=== PATIENT | female | born 1935 | race African-American/Black ===

== ENCOUNTER → 2017-12-22 | Outpatient (CLI) | payer MEDICARE ==
--- NOTE | 2017-12-23 10:50 | ECHOF ---
Referral Reason:R01.1 Cardiac Murmur MEASUREMENTS -------- HEIGHT: 165.1 cm WEIGHT: 59.0 kg BP: RVIDd: 2.5 cm (< 3.3) IVSd: 0.7 cm (0.6 - 1.1) LVIDd: 4.6 cm (3.9 - 5.3) LVPWd: 0.7 cm (0.6 - 1.1) IVSs: 1.3 cm LVIDs: 2.8 cm LVPWs: 1.3 cm LAESV Index (A-L): 36.27 ml/m Ao Diam: 3.1 cm (2.0 - 3.7) AV Cusp: 1.9 cm (1.5 - 2.6) LA Diam: 2.9 cm (2.7 - 3.8) EPSS: 0.2 cm MV E Kirby: 0.59 m/s MV DecT: 292 ms MV A Kirby: 0.93 m/s MV E/A Ratio: 0.63 AR PHT: 544 ms RAP: 5.00 mmHg RVSP: 28.80 mmHg MV EF SLOPE: 111.02 mm/s (70 - 150) MV EXCURSION: 2.11 cm (> 18.000) FINDINGS -------- Sinus rhythm. This was a technically good study. The left ventricular size is normal. Left ventricular wall thickness is normal. Overall left vent ricular systolic function is normal with, an EF between 55 - 60 %. The right ventricle is normal in size and function. LA is moderately dilated 34-39 ml/m2 RA appears enlarged. Aneurysmal inter-atrial septum. Aortic valve is trileaflet and is mildly thickened. There is lnqq-ib-nybpojpi aortic regurgitation. There is no evidence of aortic stenosis. The mitral valve leaflets are mildly thickened. Mild mitral regurgitation is present. Mild tricuspid regurgitation present. Right ventricular systolic pressure is normal at < 35 mmHg. There is no evidence of pulmonary hypertension. Trace/mild (physiologic) pulmonic regurgitation. The aortic root size is normal. Normal inferior vena cava with normal inspiratory collapse consistent with estimated right atrial pre ssure of 5 mmHg. There is no pericardial effusion. CONCLUSIONS -------- 1. Sinus rhythm. 2. This was a technically good study. 3. The left ventricular size is normal. 4. Left ventricular wall thickness is normal. 5. Overall left ventricular systolic function is normal with, an EF between 55 - 60 %. 6. LA is moderately dilated 34-39 ml/m2 7. RA appears enlarged. 8. Aneurysmal inter-atrial septum. 9. Aortic valve is trileaflet and is mildly thickened. 10. There is ogfn-za-uagpeimb aortic regurgitation. 11. The mitral valve leaflets are mildly thickened. 12. Mild mitral regurgitation is present. 13. Mild tricuspid regurgitation present. 14. Right ventricular systolic pressure is normal at < 35 mmHg. 15. There is no evidence of pulmonary hypertension. 16. Trace/mild (physiologic) pulmonic regurgitation. 17. The aortic root size is normal. 18. There is no pericardial effusion. BATCH MIXER OPERATOR: Jg Christensen RDCS
== END | disposition home or self-care (01) ==
LOC: RADECHMAIN 15:02
PROVIDERS: ATTEND Family Medicine
DX: I08.3 Combined rheumatic disorders of mitral, aortic and tricuspid valves (principal); Z88.1 Allergy status to other antibiotic agents
CPT/HCPCS: 93306

== ENCOUNTER → 2019-07-11 | Outpatient (CLI) | payer MEDICARE ==
--- NOTE | 2019-07-12 12:01 | ECHOF ---
Referral Reason:I10 hypertension MEASUREMENTS -------- HEIGHT: 165.1 cm WEIGHT: 53.1 kg BP: 126/74 RVIDd: 2.4 cm (< 3.3) IVSd: 0.9 cm (0.6 - 1.1) LVIDd: 3.5 cm (3.9 - 5.3) LVPWd: 1.1 cm (0.6 - 1.1) IVSs: 1.6 cm LVIDs: 2.3 cm LVPWs: 1.6 cm LAESV Index (A-L): 40.92 ml/m Ao Diam: 3.0 cm (2.0 - 3.7) AV Cusp: 1.6 cm (1.5 - 2.6) LA Diam: 2.9 cm (2.7 - 3.8) MV EXCURSION: 10.933 mm (> 18.000) MV EF SLOPE: 30 mm/s (70 - 150) EPSS: 0.2 cm MV E Kirby: 0.56 m/s MV DecT: 243 ms MV A Kirby: 0.97 m/s MV E/A Ratio: 0.58 AV maxP.76 mmHg AV meanP.07 mmHg AR PHT: 439 ms RAP: 5.00 mmHg RVSP: 31.60 mmHg FINDINGS -------- Sinus rhythm. This was a technically good study. The left ventricular size is normal. Left ventricular wall thickness is normal. Overall left vent ricular systolic function is normal with, an EF between 55 - 60 %. The right ventricle is normal in size. LA is severely dilated >40 ml/m2 The right atrial size is normal. Aneurysmal Interatrial septum. Aortic valve is trileaflet and is mildly thickened. There is mild aortic valve sclerosis. There i s mild aortic regurgitation. The mitral valve is normal. The mitral valve leaflets are mildly thickened. Mild mitral regurgita tion is present. The tricuspid valve appears structurally normal. Mvnt-wx-xzemywns tricuspid regurgitation present. Right ventricular systolic pressure is normal at < 35 mmHg. Trace/mild (physiologic) pulmonic regurgitation. The aortic root size is normal. There is no pericardial effusion. CONCLUSIONS -------- 1. Sinus rhythm. 2. This was a technically good study. 3. The left ventricular size is normal. 4. Left ventricular wall thickness is normal. 5. Overall left ventricular systolic function is normal with, an EF between 55 - 60 %. 6. The right ventricle is normal in size. 7. LA is severely dilated >40 ml/m2 8. The right atrial size is normal. 9. Aneurysmal Interatrial septum. 10. Aortic valve is trileaflet and is mildly thickened. 11. There is mild aortic valve sclerosis. 12. There is mild aortic regurgitation. 13. The mitral valve is normal. 14. The mitral valve leaflets are mildly thickened. 15. Mild mitral regurgitation is present. 16. The tricuspid valve appears structurally normal. 17. Dxqd-ay-hjrhdjdw tricuspid regurgitation present. 18. Right ventricular systolic pressure is normal at < 35 mmHg. 19. Trace/mild (physiologic) pulmonic regurgitation. 20. The aortic root size is normal. 21. There is no pericardial effusion. CO CHAIRMAN: Brenda Cartwright RDCS
== END | disposition home or self-care (01) ==
LOC: RADECHMAIN 15:48
PROVIDERS: ATTEND Internal Medicine
DX: I08.3 Combined rheumatic disorders of mitral, aortic and tricuspid valves (principal); I25.3 Aneurysm of heart; I11.9 Hypertensive heart disease without heart failure
CPT/HCPCS: 93306

== ENCOUNTER → 2021-05-30 | Outpatient (CLI) | payer MEDICARE ==
--- NOTE | 2021-05-30 14:36 | US ---
EXAMINATION TYPE: US abdomen complete DATE OF EXAM: 05/30/2021 COMPARISON: NONE CLINICAL HISTORY: 85-year-old female R74.8 ELEVATED LIVER ENZYMES. TECHNIQUE: Multiple sonographic images of the abdomen are obtained. FINDINGS: EXAM MEASUREMENTS: Liver Length: 15.2 cm Gallbladder Wall: 0.15 cm CBD: 0.28 cm Spleen: 6.3 x 2.3 cm Right Kidney: 10.4 x 3.1 x 5.1 cm Left Kidney: 10.8 x 3.9 x 4.5 cm Pancreas: wnl Liver: Multiple round anechoic areas seen in the right and left lobes of the liver; largest measurin g 2.7 x 2.0 x 2.4 cm in the left lobe and 2.3 x 2.0 x 2.4 cm in the right lobe of the liver. Gallbladder: Nonmobile, echogenic focus along the anterior wall measuring 1.5 mm suggestive of a tin y polyp. No abnormal distention, wall thickening, pericholecystic fluid, or shadowing calculi. Evidence for sonographic Almonte's sign: No CBD: wnl Spleen: wnl Right Kidney: No hydronephrosis. Left Kidney: No hydronephrosis. Lower pole cortical cyst measuring 1.8 x 1.5 x 2.0 cm Upper IVC: wnl Abd Aorta: wnl IMPRESSION: 1. Multiple benign hepatic cysts measuring up to 2.7 cm. A solitary 2.0 cm left lower pole renal brunilda ical cyst. 2. No gallstones or biliary ductal dilatation.
--- NOTE | 2021-05-30 20:22 | BD ---
EXAMINATION TYPE: Axial Bone Density POOR HISTOR [facility] DATE OF EXAM: 05/30/2021 COMPARISON: NONE CLINICAL HISTORY: 85 YR OLD FEMALE......ICD-10 CODE: M89.9 BONE DISORDER Height: 63 Weight: 117 FRAX RISK QUESTIONS: Family History (Parent hip fracture): UNSURE Glucocorticoids (More than 3mos): UNSURE (Ex: prednisone, prednisolone, methylprednisolone, dexamethasone, and hydrocortisone). RISK FACTORS HISTORY OF: Family History of Osteoporosis: UNSURE Diet low in dairy products/other sources of calcium: UNSURE Postmenopausal woman: HYST AT EARLY AGE,.....POOR HISTORIAN Lost more than 2 inches in height since high school: YES Frequent falls: ELDERLY, UNSTEADY Hyperparathyroidism: UNKNOWN Adrenal Insufficiency: UNKNOWN MEDICATIONS: Additional Medications: BP MEDS, POSSIBLE CHOLESTEROL MEDS, ARTHRITIS MEDS Additional History: HYPERTENSION, UNSURE ABOUT ANYTHING ELSE EXAM MEASUREMENTS: Bone mineral densitometry was performed using the [employer] System. Bone mineral density as measured about the Lumbar spine is: ----- L1-L4(G/cm2): 0.909 T Score Values are as follows: ----- L1: -2.4 ----- L2: -2.6 ----- L3: -1.8 ----- L4: -2.4 ----- L1-L4: -2.3 Bone mineral density FIRST BONE DENSITY AT [facility] Bone mineral density about the R hip (g/cm2): 0.757 Bone mineral density about the L hip (g/cm2): 0.784 T Score values are as follows: -----R Neck: -2.0 -----L Neck: -1.6 -----R Total: -2.0 -----L Total: -1.8 Bone mineral density FIRST BONE DENSITY AT [facility] FRAX%s: THERE IS A 6.5% CHANCE FOR A MAJOR OSTEOPOROTIC FX AND A 2.0% FOR HIPS......PROBABILIT Y FOR FX IN 10 YRS TIME IMPRESSION: Osteopenia (T Score between -2.5 and -1). There is slightly increased risk of fracture and the patient may be considered for treatment. Re-Screen 2-5 years. NOTE: T-SCORE=SD OF THE YOUNG ADULT MEAN.
== END | disposition home or self-care (01) ==
LOC: RADUSWWP 09:34
PROVIDERS: ATTEND Internal Medicine
DX: M85.80 Other specified disorders of bone density and structure, unspecified site (principal); R74.8 Abnormal levels of other serum enzymes
CPT/HCPCS: 76700; 77080

== ENCOUNTER → 2021-08-22 | Outpatient (CLI) | payer MEDICARE ==
--- NOTE | 2021-08-23 10:04 | XR ---
Left femur HISTORY: Pain Frontal lateral views of left femur on 4 images There is some arthropathy change in the left hip. Bone mineralization is reduced. Alignment is mainta ined. Joint space loss also present in the knee. No fracture or dislocation. Atherosclerotic vascular calcifications are present. There is an enthesophyte present at the insertion of the quadriceps tend on. IMPRESSION: Possible arthropathy. Low bone mineralization. Additional findings above.
--- NOTE | 2021-08-23 10:06 | XR ---
Lumbar spine HISTORY: Low back pain 3views of the lumbar spine on 4 images Bone mineralization is reduced. There is a levoscoliosis centered at L2 with rotatory component. Lumb ar vertebral bodies show preserved height. There is anterolisthesis grade 1 L4-5. Sclerosis is presen t posterior elements of the lumbar spine. Retrolisthesis grade 1 L2-3. There is multilevel spondylosi s. Loss of disc height present at intervertebral levels L4-5, L3-4 and L2-3. Apical scarring vascular calcifications are noted. IMPRESSION: Osteopenia, degenerative disc disease, facet arthropathy, spinal curvature.
== END | disposition home or self-care (01) ==
LOC: RADXRMAIN 17:11
PROVIDERS: ATTEND Internal Medicine
DX: M51.36 Other intervertebral disc degeneration, lumbar region (principal); M46.96 Unspecified inflammatory spondylopathy, lumbar region; M43.9 Deforming dorsopathy, unspecified; M85.88 Other specified disorders of bone density and structure, other site
CPT/HCPCS: 72100

== ENCOUNTER → 2022-03-19 | Outpatient (CLI) | payer MEDICARE ==
--- NOTE | 2022-03-19 14:36 | XR ---
EXAMINATION TYPE: XR chest 2V DATE OF EXAM: 03/19/2022 COMPARISON: NONE TECHNIQUE: PA and lateral views submitted. HISTORY: Cough FINDINGS: The lungs are clear and there is no pneumothorax, pleural effusion, or focal pneumonia. Heart size normal. Atherosclerotic change aorta. Arthropathy of the shoulders. Density overlying the proximal ri ght humerus may be superficial to bone. No overt failure. IMPRESSION: 1. No acute process.
== END | disposition home or self-care (01) ==
LOC: RADXRMAIN 13:54
PROVIDERS: ATTEND Internal Medicine
DX: R05.9 Cough, unspecified (principal)
CPT/HCPCS: 71046

== ENCOUNTER → 2022-07-16 | Outpatient (CLI) | payer MEDICARE ==
[2022-07-16 18:24] LABS: African American GFR (CKD) 67.1 (60.0-200.0); Albumin 4.4 g/dL (3.8-4.9); Albumin/Globulin Ratio 1.47 (1.60-3.17); Anion Gap 9.2 mmol/L (10.00-18.00); BUN/Creat Ratio 20.33 Ratio (12.00-20.00); Blood Urea Nitrogen 18.3 mg/dL (9.0-27.0); Calcium 10.4 mg/dL (8.7-10.3); Carbon Dioxide 29.8 mmol/L (20.0-27.5); Non-African American GFR(CKD) 57.9 (60.0-200.0); Potassium 4.5 mmol/L (3.5-5.5); Total Bilirubin 0.5 mg/dL (0.30-1.20); Total Protein 7.4 g/dL (6.2-8.2)
[2022-07-16 18:30] LABS: Basophils # (A) 0.04 X 10*3/uL (0.00-0.10); Basophils % (A) 0.7 %; Eosinophils # (A) 0.15 X 10*3/uL (0.04-0.35); Eosinophils % (A) 2.6 %; HCT 40.1 % (37.2-46.3); HGB 12.4 g/dL (12.0-15.0); Immature Grans, Automated 0.3 %; Lymphocytes # (A) 2.62 X 10*3/uL (0.90-5.00); Lymphocytes % (A) 44.9 %; MCH 26.6 pg (27.0-32.0); MCHC 30.9 g/dL (32.0-37.0); MCV 85.9 fL (80.0-97.0); Monocytes # (A) 0.38 X 10*3/uL (0.20-1.00); Monocytes % (A) 6.5 %; NRBC Per 100 WBC 0 /100 WBCS (0.0-0.0); Neutrophils # (A) 2.62 X 10*3/uL (1.80-7.70); Platelet Count 207 X 10*3/uL (140-440); RBC 4.67 X 10*6/uL (4.10-5.20); RDW 16.1 % (11.5-14.5); WBC 5.83 X 10*3/uL (4.50-10.00)
== END | disposition home or self-care (01) ==
LOC: LABWHC1 13:09
PROVIDERS: ATTEND Internal Medicine Gastroenterology
DX: R74.8 Abnormal levels of other serum enzymes (principal)
CPT/HCPCS: 36415; 80053; 85025

== ENCOUNTER → 2022-10-09 | Outpatient (CLI) | payer MEDICARE ==
[2022-10-09 19:35] LABS: Basophils # (A) 0.03 X 10*3/uL (0.00-0.10); Basophils % (A) 0.5 %; Eosinophils # (A) 0.11 X 10*3/uL (0.04-0.35); Eosinophils % (A) 1.7 %; HCT 40.5 % (37.2-46.3); HGB 12.6 g/dL (12.0-15.0); Immature Grans, Automated 0.3 %; Lymphocytes # (A) 2.06 X 10*3/uL (0.90-5.00); Lymphocytes % (A) 31.8 %; MCH 26.7 pg (27.0-32.0); MCHC 31.1 g/dL (32.0-37.0); MCV 85.8 fL (80.0-97.0); Mean Platelet Volume 12.7 fL (9.5-12.2); Monocytes # (A) 0.49 X 10*3/uL (0.20-1.00); Monocytes % (A) 7.6 %; NRBC Per 100 WBC 0 /100 WBCS (0.0-0.0); Neutrophils # (A) 3.76 X 10*3/uL (1.80-7.70); Neutrophils % (A) 58.1 %; Platelet Count 208 X 10*3/uL (140-440); RBC 4.72 X 10*6/uL (4.10-5.20); RDW 16.7 % (11.5-14.5); WBC 6.47 X 10*3/uL (4.50-10.00)
[2022-10-09 20:58] LABS: ALT 38 U/L (8-44); AST 31 U/L (13-35); African American GFR (CKD) 67.6 (60.0-200.0); Albumin 4.4 g/dL (3.8-4.9); Albumin/Globulin Ratio 1.52 (1.60-3.17); Alkaline Phosphatase 93 U/L (41-126); BUN/Creat Ratio 15.31 Ratio (12.00-20.00); Blood Urea Nitrogen 13.7 mg/dL (9.0-27.0); Calcium 10.2 mg/dL (8.7-10.3); Carbon Dioxide 28.4 mmol/L (20.0-27.5); Chloride 109 mmol/L (96-109); Chol/HDL Ratio 1.97 Ratio; Creatine Kinase 106 U/L (26-186); Globulin 2.9 g/dL (1.6-3.3); Glucose 90 mg/dL (70-110); LDL Cholesterol,Calculated 58.5 mg/dL (0.0-131.0); Non-African American GFR(CKD) 58.3 (60.0-200.0); Potassium 4.4 mmol/L (3.5-5.5); Sodium 146 mmol/L (135-145); Total Protein 7.3 g/dL (6.2-8.2)
== END | disposition home or self-care (01) ==
LOC: LABWHC1 09:10
PROVIDERS: ATTEND Internal Medicine
DX: Z00.00 Encounter for general adult medical examination without abnormal findings (principal); E78.00 Pure hypercholesterolemia, unspecified; M85.80 Other specified disorders of bone density and structure, unspecified site
CPT/HCPCS: 36415; 80053; 80061; 82306; 82550; 84443; 85025

== ENCOUNTER → 2022-10-31 | Outpatient (CLI) | payer MEDICARE ==
--- NOTE | 2022-11-01 13:43 | CA ---
Transthoracic Echo Report Name: Aminah Genao Age: 87 Gender: F : 1935 Exam Date: 10/31/2022 14:17 Exam Location: [facility] Ht (in): 66 Wt (lb): 122 Ordering Physician: Shilo Hernandez MD Attending/Referring Phys: Technology Architect Mame Merino RDCS Procedure CPT: Indications: I44.0 Cardiac Hx: Technical Quality: Good Contrast 1: Total Dose (mL): Contrast 2: Total Dose (mL): MEASUREMENTS (Male / Female) Normal Values 2D ECHO LV Diastolic Diameter PLAX 4.3 cm 4.2 - 5.9 / 3.9 - 5.3 cm LV Systolic Diameter PLAX 2.9 cm IVS Diastolic Thickness 1.0 cm 0.6 - 1.0 / 0.6 - 0.9 cm LVPW Diastolic Thickness 1.1 cm 0.6 - 1.0 / 0.6 - 0.9 cm LV Relative Wall Thickness 0.5 RV Internal Dim ED PLAX 2.4 cm LA Systolic Diameter LX 3.0 cm 3.0 - 4.0 / 2.7 - 3.8 cm LV Diastolic Volume MOD 4C 72.7 cm??? LV Systolic Volume MOD 4C 22.5 cm??? LV Ejection Fraction MOD 4C 69.1 % LV Diastolic Length 4C 6.2 cm LV Systolic Length 4C 4.6 cm LV Diastolic Volume MOD 2C 63.6 cm??? LV Systolic Volume MOD 2C 18.9 cm??? LV Ejection Fraction MOD 2C 70.2 % LV Diastolic Length 2C 6.2 cm LV Systolic Length 2C 4.4 cm LA Volume 40.7 cm??? 18 - 58 / 22 - 52 cm??? M-MODE Aortic Root Diameter MM 3.2 cm LA Systolic Diameter MM 2.2 cm LA Ao Ratio MM 0.7 DOPPLER AV Peak Velocity 139.5 cm/s AV Peak Gradient 7.8 mmHg AI Peak Velocity 415.7 cm/s AI Peak Gradient 69.1 mmHg AI Pressure Half Time 1065.4 ms Mitral E Point Velocity 60.0 cm/s Mitral A Point Velocity 104.7 cm/s Mitral E to A Ratio 0.6 MV Deceleration Time 369.7 ms MV E' Velocity 5.8 cm/s Mitral E to MV E' Ratio 10.3 TR Peak Velocity 208.4 cm/s TR Peak Gradient 17.4 mmHg Right Ventricular Systolic Press 27.4 mmHg FINDINGS Left Ventricle Left ventricular ejection fraction is estimated at 55-60 %. Left ventricular cavity size normal. Left ventricular wall thickness normal. Normal left ventricular wall motion. Right Ventricle Right ventricle not well visualized. Right ventricular systolic pressure within normal limits. Right Atrium Normal right atrial size. Left Atrium Normal left atrial size. Mitral Valve Mitral valve thickened. Mild mitral regurgitation. Aortic Valve Trileaflet aortic valve. Aortic valve sclerosis. Mild aortic regurgitation. Tricuspid Valve Structurally normal tricuspid valve. Mild tricuspid regurgitation. Pulmonic Valve Structurally normal pulmonic valve. Mild pulmonic regurgitation. Pericardium Normal pericardium. No pericardial effusion. Aorta Normal size aortic root and proximal ascending aorta. CONCLUSIONS Normal LV systolic function Mild mitral and aortic regurgitation Previewed by: Dr. Ministerio Campbell MD (Electronically Signed) Final Date: 01 Nov 2022 13:42
== END | disposition home or self-care (01) ==
LOC: RADECHMAIN 13:44
PROVIDERS: ATTEND Internal Medicine
DX: I08.0 Rheumatic disorders of both mitral and aortic valves (principal); I44.0 Atrioventricular block, first degree
CPT/HCPCS: 93306

== ENCOUNTER → 2022-11-07 | Outpatient (CLI) | payer MEDICARE ==
--- NOTE | 2022-11-11 05:15 | CT ---
EXAMINATION TYPE: CT chest w con DATE OF EXAM: 11/07/2022 COMPARISON: Radiograph 03/19/2022 HISTORY: 87-year-old female Chronic cough. TECHNIQUE: Contiguous axial scanning of the chest after the administration of 100ml mL of Isovue 300. Coronal/sagittal reconstructions performed. CT DLP: 291mGycm. Automatic exposure control utilized for a dose reduction. FINDINGS: Heart mildly enlarged without pericardial effusion. Aortic root borderline ectatic at 3.5 cm. Ascending aorta mildly aneurysmal at 4.0 cm. Mild atherosclerotic arch calcifications. Mild ectasia upper descending thoracic aorta 3.3 cm and lower descending thoracic aorta 3.2 cm. Borderline caliber to the main right and left pulmonary arteries measuring up to 2.5 cm may reflect u nderlying pulmonary hypertension. No thoracic lymphadenopathy by CT size criteria. Mild emphysematous change. Some patchy groundglass change in the visualized lower lungs may be due to generalized atelectasis. Right infrahilar nodularity measuring 1.9 cm, suspected prominent pericardiac recess of the pulmonary vein rather than a true pulmonary nodule. This should be reassessed in 3 months. 4 mm left mid lung pulmonary nodule, axial image 27 in the reassessed at follow-up as well. No conso lidation or pleural effusion. Visualized upper abdomen shows numerous hepatic cysts of variable size, measuring up to 2.6 cm. Bones: Moderate degenerative disc disease throughout. No osseous destructive process. IMPRESSION: 1. Mild cardiomegaly. There may be underlying pulmonary arterial hypertension. 2. COPD with mild emphysema. 3. Patchy groundglass changes in the visualized lower lungs may be due to generalized atelectasis. Co rrelate to exclude an interstitial pneumonitis such as NSIP or DIP. 4. Suspect a prominent pericardiac recess of the right inferior pulmonary vein rather than a 1.9 cm p ulmonary nodule. Three-month follow-up CT to reassess. A 4 mm left mid lung pulmonary nodule can be r eassessed at that time as well.
== END | disposition home or self-care (01) ==
LOC: RADCTMAIN 11:50
PROVIDERS: ATTEND Internal Medicine
DX: J43.9 Emphysema, unspecified (principal); R91.8 Other nonspecific abnormal finding of lung field; I51.7 Cardiomegaly
CPT/HCPCS: 82565; 84520; 71260; 36415; Q9967

== ENCOUNTER → 2023-01-08 | Outpatient (CLI) | payer MEDICARE ==
--- NOTE | 2023-01-08 16:21 | CT ---
EXAMINATION TYPE: CT chest wo con CT DLP: 484.0 mGycm, Automated exposure control for dose reduction was used. DATE OF EXAM: 01/08/2023 1:00 PM COMPARISON: CT chest 11/07/2022. CLINICAL INDICATION:Female, 87 years old with history of R05.3; PHH, Chronic cough-(HRCT) TECHNIQUE: Noncontiguous 1 mm axial images at 10 mm intervals were obtained in supine position in exp iration. Coronal and sagittal reformatted images were obtained. No intravenous contrast was administe red. Contrast used: mL of (None if empty) Oral contrast used: (None if empty) FINDINGS: LUNGS: Mild emphysema changes are present. There is no evidence of interstitial thickening, significa nt groundglass opacity, honeycombing or architectural distortion in the lungs. . No acute area of inf iltrative or consolidative change. There is mild centrilobular emphysema greatest in the upper lung z ones. Previously described pulmonary nodules are stable in size and morphology, and there is no new o r enlarging nodule identified. LARGE AIRWAYS: Central airways are patent. Mild bronchiectasis is present. Bronchial douglass are within normal limits for size. PLEURA: No pleural effusion or thickening. HEART AND PERICARDIUM: Heart is normal in size. There is no pericardial effusion. MEDIASTINUM AND PARRISH: No mediastinal or hilar lymphadenopathy or soft tissue mass. VESSELS: The thoracic aorta is normal in course and caliber. CHEST WALL AND DIAPHRAGM: Normal. LOWER NECK: Normal. UPPER ABDOMEN: Scattered hepatic cysts are seen. MUSCULOSKELETAL: No acute fracture. Mild multilevel disc degeneration changes throughout the visualiz ed spine. Nonobstructing left renal calculi measuring 3 mm. IMPRESSION: 1. No HRCT findings suspicious for interstitial lung disease. 2. COPD and emphysema.
== END | disposition home or self-care (01) ==
LOC: RADCTMAIN 12:30
PROVIDERS: ATTEND Internal Medicine Critical Care Medicine
DX: J43.2 Centrilobular emphysema (principal); R05.3 Chronic cough
CPT/HCPCS: 71250

== ENCOUNTER → 2024-03-18 | Outpatient (CLI) | payer MEDICARE ==
--- NOTE | 2024-03-18 17:18 | US ---
EXAMINATION TYPE: US liver DATE OF EXAM: 03/18/2024 COMPARISON: NONE CLINICAL INDICATION: Female, 88 years old with history of K76.89 OTHER SPECIFIED DISEASES OF LIVER N2 8.1; Hx liver cysts TECHNIQUE: Grayscale and color Doppler imaging of the right upper quadrant was performed. FINDINGS: EXAM MEASUREMENTS: Liver Length: 13.1 cm Gallbladder Wall: 0.1 cm CBD: 0.3 cm Right Kidney: Separate renal exam same day cm RESP THERAPIST NOTES: Pancreas: wnl Liver: Multiple cysts through out Largest left = 3.0 x 2.3 x 2.8 cm Largest right = 2.5 x 2.2 x 2.7 cm Gallbladder: wnl Evidence for sonographic Almonte's sign: No CBD: wnl Right Kidney: Separate renal exam same day IMPRESSION: 1. Multiple hepatic cysts. [facility], Workstation: [facility], 03/18/2024 5:16 PM
--- NOTE | 2024-03-18 17:19 | US ---
EXAMINATION TYPE: US kidneys/renal and bladder DATE OF EXAM: 03/18/2024 COMPARISON: NONE CLINICAL INDICATION: Female, 88 years old with history of K76.89 OTHER SPECIFIED DISEASES OF LIVER N2 8.1; TECHNIQUE: Grayscale and color Doppler imaging of the bilateral kidneys and urinary bladder: EXAM MEASUREMENTS: Right Kidney: 11.1 x 3.8 x 4.7 cm Left Kidney: 11.2 x 4.4 x 4.7 cm Post Void Residual Volume: NA mL Right Kidney: WNL Left Kidney: Multiple cysts, largest lower pole = 2.0 x 1.8 x 2.2 cm Bladder: WNL Bilateral Jets seen: Yes Normal Post Void Residual: NA IMPRESSION: 1. Multiple left renal cysts. [facility], Workstation: [facility], 03/18/2024 5:17 PM
== END | disposition home or self-care (01) ==
LOC: RADUSWWP 07:12
PROVIDERS: ATTEND Internal Medicine
DX: K76.89 Other specified diseases of liver (principal); N28.1 Cyst of kidney, acquired
CPT/HCPCS: 76705; 76770

== ENCOUNTER → 2024-07-19 | Outpatient (CLI) | payer MEDICARE ==
--- NOTE | 2024-07-19 10:07 | US ---
EXAMINATION TYPE: US liver DATE OF EXAM: 07/19/2024 COMPARISON: NONE CLINICAL INDICATION: Female, 89 years old with history of R79.89 ELEVATED LFTS; Elevated LFTs TECHNIQUE: Grayscale and color Doppler imaging of the right upper quadrant was performed. FINDINGS: EXAM MEASUREMENTS: Liver Length: 14.9 cm Gallbladder Wall: 0.2 cm CBD: 0.4 cm Right Kidney: 10.9 x 4.0 x 6.3 cm COMPRESSOR STATIONS SUPERINTENDENT NOTES: Pancreas: difficult to assess due to anatomical lie. Tail obscured by overlying bowel gas Liver: several anechoic areas with posterior enhancement. Largest areas measured in each lobe: left lobe: 2.5x2.0x2.3cm right lobe: 2.2x2.4x2.8cm Gallbladder: wnl Evidence for sonographic Almonte's sign: No CBD: wnl Right Kidney: wnl exam limited due to bowel gas, rib shadows. IMPRESSION: 1. Multiple hepatic cysts. [facility], , 07/19/2024 10:04 AM
== END | disposition home or self-care (01) ==
LOC: RADUSWWP 08:30
PROVIDERS: ATTEND Internal Medicine
DX: K76.89 Other specified diseases of liver (principal); R79.89 Other specified abnormal findings of blood chemistry
CPT/HCPCS: 76705

== ENCOUNTER → 2024-10-10 | Outpatient (CLI) | payer MEDICARE ==
[2024-10-10 15:20] LABS: African American GFR (CKD) 82 (>60 ml/min/1.73 sqM); Blood Urea Nitrogen 17 mg/dL (7-17); Non-African American GFR(CKD) 71 (>60 ml/min/1.73 sqM)
--- NOTE | 2024-10-10 18:25 | CT ---
EXAMINATION TYPE: CT chest w con DATE OF EXAM: 10/10/2024 3:47 PM COMPARISON: 01/08/2023 CLINICAL INDICATION: Female, 89 years old with history of R91.1 SOLITARY PULMONARY NODULE, f/u nodule , TECHNIQUE: CT scan of the chest is performed with IV Contrast, patient injected with 100 cc mL of Iso daniel 300. CT DLP: 145.1 mGycm, Automated exposure control for dose reduction was used. FINDINGS: LUNGS: The lungs are grossly clear, there is no concerning parenchymal mass or nodule identified. T here is no pleural effusion or pneumothorax seen. The tracheobronchial tree is patent. MEDIASTINUM: There are no greater than 1 cm hilar or mediastinal lymph nodes. No pericardial effusi on is seen. Aneurysm descending thoracic aorta measuring 3.1 cm. Descending thoracic aorta measures 4 cm in AP dimension. There is evidence of cardiomegaly. HEART: Cardiomegaly is demonstrated. No significant coronary artery calcifications. UPPER ABDOMEN: Hepatic cysts are appreciated. OTHER: No additional significant abnormality is seen. IMPRESSION: 1. No evidence of pulmonary nodule or mass. No infiltrate or pleural effusion. 2. 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 [facility], , 10/10/2024 6:23 PM
== END | disposition home or self-care (01) ==
LOC: RADCTMAIN 14:45
PROVIDERS: ATTEND Internal Medicine Critical Care Medicine
DX: I71.21 Aneurysm of the ascending aorta, without rupture (principal); R91.1 Solitary pulmonary nodule; I71.23 Aneurysm of the descending thoracic aorta, without rupture; I51.7 Cardiomegaly
CPT/HCPCS: 82565; 84520; 71260; 36415; Q9967